=== PATIENT | male | born 1970 | race Caucasian/White ===

== ENCOUNTER 2019-05-12 09:06 | Emergency (ER) | payer SELFPAY ==
--- NOTE | 2019-05-12 10:27 | EDM.PDOC ---
ED HPI GENERAL MEDICAL PROBLEM - General Chief Complaint: Gastrointestinal Problem Stated Complaint: DIZZINESS/WEAKNESS/BLACK STOOL Time Seen by Provider: 05/12/19 10:27 - History of Present Illness INITIAL COMMENTS - FREE TEXT/NARRATIVE: 48-year-old male presents emergency room with black watery stools. This is been going on several days. He only complains of some midepigastric discomfort he is not having heartburn and reflux. The patient is working here home is to see her in he's been recently diagnosed with thyroid cancer and non- Hodgkin's lymphoma. By his own choice he's not pursuing treatment for these. Patient denies any other significant medical history other than some age- appropriate arthritis. - Related Data Allergies Allergy/AdvReac Type Severity Reaction Status Date / Time No Known Allergies Allergy Verified 05/12/19 09:21 Home Meds: Home Meds Pantoprazole Sodium [Protonix] 40 mg PO Q24H #30 tablet. 05/12/19 [Rx] Past Medical History Respiratory History: Reports: Pneumonia, Recurrent Musculoskeletal History: Reports: Arthritis Neurological History: Reports: Migraines Oncologic (Cancer) History: Reports: Non-Hodgkin's Lymphoma, Thyroid, Other ( See Below) Other Oncologic History: larygeal mass - Past Surgical History HEENT Surgical History: Reports: Adenoidectomy, Tonsillectomy GI Surgical History: Reports: Appendectomy Musculoskeletal Surgical History: Reports: Shoulder Surgery Social & Family History - Family History Cardiac: Reports: CAD, [place] Neurological: Reports: CVA Endocrine/Metabolic: Reports: Diabetes, type II Oncologic: Reports: Brain, Liver - Tobacco Use Smoking Status *Q: Current Every Day Smoker Years of Tobacco use: 35 Packs/Tins Daily: 1 - Caffeine Use Caffeine Use: Reports: Coffee, Energy Drinks, Soda - Recreational Drug Use Recreational Drug Use: No ED ROS GENERAL - Review of Systems Review Of Systems: See Below Constitutional: Reports: No Symptoms HEENT: Reports: No Symptoms Respiratory: Reports: No Symptoms Cardiovascular: Reports: No Symptoms Endocrine: Reports: No Symptoms GI/Abdominal: Reports: Abdominal Pain (Mild epigastric pain), Diarrhea, Other ( He states he eats quite a bit but still loses weight). Denies: Constipation, Nausea, Vomiting : Reports: No Symptoms Musculoskeletal: Reports: No Symptoms Skin: Reports: No Symptoms Neurological: Reports: No Symptoms Psychiatric: Reports: No Symptoms Hematologic/Lymphatic: Reports: No Symptoms Immunologic: Reports: No Symptoms ED EXAM, GI/ABD - Physical Exam Exam: See Below Exam Limited By: No Limitations General Appearance: Alert, No Apparent Distress Head: Atraumatic, Normocephalic Neck: Normal Inspection, Supple, Non-Tender, Full Range of Motion Respiratory/Chest: No Respiratory Distress, Lungs Clear, Normal Breath Sounds Cardiovascular: Regular Rate, Rhythm, No Edema, No Murmur GI/Abdominal Exam: Normal Bowel Sounds, Soft, Non-Tender Rectal (Males) Exam: Normal Exam, Normal Rectal Tone, Heme - Stool (No stool obtained on the sample Hemoccult unreliable trying get a second specimen) Course - Vital Signs Last Recorded V/S: Last Vital Signs Temp 36.2 C 05/12/19 09:17 Pulse 84 05/12/19 09:17 Resp 16 05/12/19 09:17 BP 143/98 H 05/12/19 09:17 Pulse Ox 87 L 05/12/19 09:17 - Orders/Labs/Meds Labs: Laboratory Tests 05/12/19 05/12/19 05/12/19 Range/Units 10:12 10:12 10:12 WBC 7.42 (4.23-9.07) K/mm3 RBC 5.40 (4.63-6.08) M/mm3 Hgb 15.0 (13.7-17.5) gm/L Hct 45.6 (40.1-51.0) % MCV 84.4 (79.0-92.2) fl MCH 27.8 (25.7-32.2) pg MCHC 32.9 (32.2-35.5) g/dl RDW Std Deviation 43.3 (35.1-43.9) fL Plt Count 171 (163-337) K/mm3 MPV 11.7 (9.4-12.3) fl Neutrophils % (Manual) 79 H (40-60) % Band Neutrophils % 0 (0-10) % Lymphocytes % (Manual) 18 L (20-40) % Atypical Lymphs % 0 % Immat Monocytes % (Man) 0 Monocytes % (Manual) 1 L (2-10) % Eosinophils % (Manual) 2 (0.8-7.0) % Basophils % (Manual) 0 L (0.2-1.2) Metamyelocytes % 0 Myelocytes % 0 Promyelocytes % 0 Blast Cells % 0 Plasma Cell % (Manual) 0 Nucleated RBCs 0.0 % Platelet Estimate Adequate RBC Morph Comment Normal Sodium 142 (136-145) mEq/L Potassium 4.5 (3.5-5.1) mEq/L Chloride 107 (98-107) mEq/L Carbon Dioxide 25 (21-32) mEq/L Anion Gap 14.5 (5-15) BUN 18 (7-18) mg/dL Creatinine 1.4 H (0.7-1.3) mg/dL Est Cr Clr Drug Dosing TNP Estimated GFR (MDRD) 55 (>60) mL/min BUN/Creatinine Ratio 12.9 L (14-18) Glucose 95 (74-106) mg/dL Calcium 8.2 L (8.5-10.1) mg/dL Total Bilirubin 0.2 (0.2-1.0) mg/dL AST 9 L (15-37) U/L ALT 19 (16-63) U/L Alkaline Phosphatase 130 H (46-116) U/L Total Protein 6.7 (6.4-8.2) g/dl Albumin 3.5 (3.4-5.0) g/dl Globulin 3.2 gm/dL Albumin/Globulin Ratio 1.1 (1-2) Lipase 204 (73-393) U/L Meds: Medications Discontinued Medications Generic Name Dose Route Start Last Admin Trade Name Freq PRN Reason Stop Dose Admin Famotidine 20 mg 05/12/19 10:43 05/12/19 11:07 Pepcid IVPUSH 05/12/19 10:44 20 mg ONETIME ONE Administration Pantoprazole Sodium 40 mg 05/12/19 10:43 05/12/19 11:07 Protonix Iv IVPUSH 05/12/19 10:44 40 mg ONETIME ONE Administration - Re-Assessments/Exams Free Text/Narrative Re-Assessment/Exam: 05/12/19 14:06 [address] CAT scan to see if there is something going on it's causing him to lose weight despite eating heavily. He has declined this at this time. We will discharge on famotidine and Protonix. Departure - Departure Time of Disposition: 14:07 Disposition: Left Without Being Seen 07 Clinical Impression: Dyspepsia, Weight loss - Discharge Information Prescriptions: Pantoprazole Sodium [Protonix] 40 mg PO Q24H #30 tablet. Referrals: PCP,None [Primary Care Provider] - Forms: ED Department Discharge Additional Instructions: Return to the emergency room with any questions problems worsening symptoms. Follow-up in the Hospital clinic next week [phone]. Discuss your weight loss, and the underlying suspected diagnoses. Start famotidine, or Pepcid 20 mg twice daily for 1 week and then 20 mg daily thereafter. You have been started on Protonix , this is also to help with her stomach take it once daily this works best if you take it 30-60 minutes before your morning meal.
[2019-05-12] MEDS ORDERED: Famotidine 20 MG/2 ML SDV IVPUSH ONE (10:43)
[2019-05-12] MEDS ORDERED: Pantoprazole 40 MG Vial IVPUSH ONE (10:43)
== END 2019-05-12 14:33 | disposition home or self-care (01) ==
LOC: JD.ED 09:06
DX: R10.13 Epigastric pain (principal); R63.4 Abnormal weight loss; M19.90 Unspecified osteoarthritis, unspecified site; Z90.49 Acquired absence of other specified parts of digestive tract; F17.210 Nicotine dependence, cigarettes, uncomplicated
CPT/HCPCS: 36415; 80053; 83690; 85007; 85027; 96374; 96375; 99284; C9113; J3490; 99283